=== PATIENT | male | born 1970 | race Two or more races ===

== ENCOUNTER 2022-04-06 00:16 | Emergency (ER) | payer OTHER, MEDICARE ==
[~2022-04-06] VITALS: Ht 170.2 cm; Wt 97.7 kg
[2022-04-06] MEDS ORDERED: SULF1TAB49 PO (01:32)
[2022-04-06 01:34] VITALS: BP 129/90
== END 2022-04-06 01:49 | disposition home or self-care (01) ==
LOC: ER 00:18
DX: L03.031 Cellulitis of right toe (principal); L60.0 Ingrowing nail; Z79.899 Other long term (current) drug therapy
CPT/HCPCS: 10060; 11730; 11750; 99283; 99284; 99285